=== PATIENT | female | born 1970 | race Caucasian/White ===

== ENCOUNTER 2017-04-14 15:01 | Day surgery (SDC) | payer SELFPAY ==
[2017-04-14] MEDS ORDERED: LIDOCAINE W/ SODIUM BICARB 0.5 ML SYR ONE (15:05)
[2017-04-14] MEDS ORDERED: Lactated Ringers 1,000 ML PRIMARY IV ONE (15:05)
[2017-04-14] MEDS ORDERED: MIDAZOLAM 5 MG/1 ML ONE (15:41)
[2017-04-14] MEDS ORDERED: LIDOCAINE 2%/ EPI 1:200,000 - 20 ML VIAL ONE (15:41)
[2017-04-14] MEDS ORDERED: fentaNYL Inj 100 MCG/2 ML VIAL ONE (15:42)
[2017-04-14] MEDS ORDERED: MEPIVACAINE HCL/PF 20 MG/1 ML IV ONE (15:43)
--- NOTE | 2017-04-14 16:03 | CRNA.PROCE ---
Nerve Block Documentation - - Safety Measures: Time Out Taken, Site Verified - - Type of Nerve Block Used: Right Axillary Block (trans arterial tech. Neg pain, Neg increase in HR or sign of uptake) Position for Nerve Block: Supine Moniters Used During Block: EKG, SPO2, NIBP Oxygen Sumpplented: Yes Sedation Used - Enter Amount in Comment Field: Midazolam (mg): Yes (2mg iv), Fentanyl (mcg): Yes (100mcg iv) Skin Prep Used: ChloroPrep Technique: Other Nerve Block Needle Used: Other (22ga Bbevel) Local Anesthetic - Enter Amt in Comment Field: 2 % Xylocaine with Epinephrine 1: 200,000 (mL): Yes (20ml), 2 % Mepivacaine (mL): Yes (20ml)
[2017-04-14 17:10] VITALS: RESP 16
[2017-04-14 17:12] VITALS: TEMP 97
== END 2017-04-14 16:45 | disposition home or self-care (01) ==
LOC: SDSC 15:01
PROVIDERS: ATTEND Orthopaedic Surgery
DX: S52.571A Other intraarticular fracture of lower end of right radius, initial encounter for closed fracture (principal); W18.31XA Fall on same level due to stepping on an object, initial encounter
CPT/HCPCS: 25605; 76000; J0670; J2250; J2704; J3010; J7120

== ENCOUNTER 2017-04-22 13:42 | Day surgery (SDC) | payer SELFPAY ==
[2017-04-22] MEDS ORDERED: ceFAZolin Inj 2gm (Premix) 50 ML IV ONE (13:49)
[2017-04-22] MEDS ORDERED: LIDOCAINE W/ SODIUM BICARB 0.5 ML SYR ONE (13:49)
[2017-04-22] MEDS ORDERED: Lactated Ringers 1,000 ML PRIMARY IV ONE (13:49)
[2017-04-22] MEDS ORDERED: LIDOCAINE 2%/ EPI 1:200,000 - 20 ML VIAL ONE (14:23)
[2017-04-22] MEDS ORDERED: MIDAZOLAM 5 MG/1 ML ONE (14:23)
[2017-04-22] MEDS ORDERED: fentaNYL Inj 100 MCG/2 ML VIAL ONE (14:23)
[2017-04-22] MEDS ORDERED: DEXAMETHASONE SOD PHOSPHATE 4 MG/1 ML VIAL ONE (14:24)
[2017-04-22] MEDS ORDERED: BUPivacaine Inj 0.5% PF (5mg/ml) 30ml vial ONE (14:24)
--- NOTE | 2017-04-22 14:58 | CRNA.PROCE ---
Nerve Block Documentation - - Type of Nerve Block Used: Right Axillary Block Position for Nerve Block: Supine Moniters Used During Block: EKG, SPO2, NIBP Oxygen Sumpplented: Yes Sedation Used - Enter Amount in Comment Field: Midazolam (mg): Yes (2mg), Fentanyl (mcg): Yes (50mcg) Skin Prep Used: ChloroPrep Draped: No Technique: Nerve Stimulator Nerve Block Needle Used: 40 mm ProBlk II Stimulation Hz: 2 Stimulation Staring mA: 1.2 Stimulation Ending mA: 0.4 Local Anesthetic - Enter Amt in Comment Field: 0.5 % Bupivacaine Plain (mL): Yes (20ml), 2 % Xylocaine with Epinephrine 1:200,000 (mL): Yes (20ml) Additives to Nerve Blocks: Dexamethasone (mg): Yes (2ml(8mg))
[2017-04-22] MEDS ORDERED: BACITRACIN 50,000 UNIT VIAL IRRIG ONE (16:09)
[2017-04-22] MEDS ORDERED: Sodium Chloride 0.9% vial 10 ML ONE (16:10)
[2017-04-22] MEDS ORDERED: diphenhydrAMINE 25 MG CAPSULE PO PRN (17:41)
[2017-04-22] MEDS ORDERED: Prochlorperazine Tab 10 MG TAB PO PRN (17:41)
[2017-04-22] MEDS ORDERED: NORMAL SALINE 10 ML SYRINGE FLUSH IVP PRN (17:41)
[2017-04-22] MEDS ORDERED: CALCIUM CARBONATE 500 MG (TUMS) CHEWABLE TABLET PO PRN (17:41)
[2017-04-22] MEDS ORDERED: HYDROcodone-APAP 7.5 MG-325 MG TABLET PO PRN (17:41)
[2017-04-22] MEDS ORDERED: BISACODYL 5 MG TABLET PO PRN (17:41)
[2017-04-22] MEDS ORDERED: MAG HYDROX/AL HYDROX/SIMETH 30 ML SUSP PO PRN (17:41)
[2017-04-22] MEDS ORDERED: Ondansetron ODT Tab 8 MG TAB PO PRN (17:41)
[2017-04-22] MEDS ORDERED: KETOROLAC 15 MG/1 ML VIAL IVP PRN (17:41)
[2017-04-22] MEDS ORDERED: ACETAMINOPHEN 325 MG TABLET PO PRN (17:41)
[2017-04-22] MEDS ORDERED: IBUPROFEN 400 MG TABLET PO PRN (17:41)
[2017-04-22] MEDS ORDERED: ONDANSETRON 4 MG/2 ML VIAL IVP PRN (17:41)
[2017-04-22] MEDS ORDERED: HYDROmorphone 2 MG/1 ML IVP PRN (17:41)
[2017-04-22] MEDS ORDERED: BISACODYL 10 MG SUPPOSITORY RECTAL PRN (17:41)
[2017-04-22] MEDS ORDERED: Lactated Ringers 1,000 ML PRIMARY IV SCH (17:45)
[2017-04-22 18:44] VITALS: RESP 16
[2017-04-22 18:56] VITALS: TEMP 97
== END 2017-04-22 18:30 | disposition home or self-care (01) ==
LOC: SDSC 13:42
PROVIDERS: ATTEND Orthopaedic Surgery
DX: S52.91XA Unspecified fracture of right forearm, initial encounter for closed fracture (principal); W18.31XA Fall on same level due to stepping on an object, initial encounter
CPT/HCPCS: 25608; 76001; A4216; J0690; J1100; J2250; J2704; J3010; J3490; J7120